=== PATIENT | female | born 1980 | race American Indian/Alaskan Native ===

== ENCOUNTER 2020-03-26 15:06 | Emergency (ER) | payer SELFPAY | END 2020-03-26 21:39 | disposition left against medical advice (07) | LOC: ED 15:06 | DX: R53.1 Weakness (principal); Z53.21 Procedure and treatment not carried out due to patient leaving prior to being seen by health care provider | CPT/HCPCS: 82962 ==

== ENCOUNTER 2021-11-30 14:59 | Emergency (ER) | payer OTHER ==
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
[2021-11-30 20:37] VITALS: BP 124/69
== END 2021-11-30 20:39 | disposition home or self-care (01) ==
LOC: ED 14:59
DX: M54.2 Cervicalgia (principal); V89.2XXA Person injured in unspecified motor-vehicle accident, traffic, initial encounter; Y93.89 Activity, other specified; Y92.89 Other specified places as the place of occurrence of the external cause; Y99.8 Other external cause status
CPT/HCPCS: 99282